=== PATIENT | male | born 1990 | race Caucasian/White ===

== ENCOUNTER 2016-08-17 21:10 | Emergency (ER) | payer MEDICAID ==
[2016-08-17 21:20] VITALS: TEMP 97.5
--- NOTE | 2016-08-17 21:23 | CPEKG ---
Heart Rate: 108 RR Interval: 556 P-R Interval: 136 QRSD Interval: 84 QT Interval: 360 QTC Interval: 483 P [place]: 69 QRS [place]: 96 T Wave [place]: 34 EKG Severity - ABNORMAL ECG - EKG Impression: SINUS TACHYCARDIA EKG Impression: PROBABLE LEFT ATRIAL ABNORMALITY EKG Impression: BORDERLINE RIGHT AXIS DEVIATION EKG Impression: BORDERLINE PROLONGED QT INTERVAL Electronically Signed By: Mckinley Busby 17-Aug-2016 22:47:58
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
--- NOTE | 2016-08-17 21:49 | DX ---
PA and Lateral Chest Clinical Indications: Left-sided chest pain, dyspnea. Findings: Compare 2014 and 2010. [place]ry overlies the left hemithorax. Mild thoracic vertebral compr ession deformities are unchanged from July 10, 2015. The lungs are clear, and no masses are found. The heart and pulmonary vessels are normal. There are no pleural effusions and no pneumothorax. Impression: No acute cardiopulmonary abnormality.
[2016-08-17 21:59] VITALS: BP 108/67; PULSE 110; RESP 14; O2SAT 94
--- NOTE | 2016-08-18 10:03 | CPEKG ---
Heart Rate: 102 RR Interval: 588 P-R Interval: 136 QRSD Interval: 88 QT Interval: 360 QTC Interval: 469 P [place]: 77 QRS [place]: 102 T Wave [place]: 36 EKG Severity - ABNORMAL ECG - EKG Impression: SINUS TACHYCARDIA EKG Impression: LEFT ATRIAL ABNORMALITY EKG Impression: BORDERLINE RIGHT AXIS DEVIATION Electronically Signed By: Son Olson 19-Aug-2016 16:46:24
== END 2016-08-17 21:57 | disposition home or self-care (01) ==
LOC: EDUNIT# → EDBD
DX: R07.89 Other chest pain (principal); F17.200 Nicotine dependence, unspecified, uncomplicated

== ENCOUNTER 2017-03-05 23:32 | Emergency (ER) | payer MEDICAID, OTHER ==
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
[2017-03-06 00:13] VITALS: RESP 16; TEMP 97.9; O2SAT 96
[2017-03-06] MEDS ORDERED: HYDROCODONE/APAP 5/325 TAB PO ONE (00:23)
[2017-03-06] MEDS ORDERED: ACETAMINOPHEN 325 MG TAB PO ONE (00:32)
[2017-03-06 00:36] VITALS: BP 125/80; PULSE 78
== END 2017-03-06 00:35 | disposition home or self-care (01) ==
DX: S02.2XXA Fracture of nasal bones, initial encounter for closed fracture (principal); F17.200 Nicotine dependence, unspecified, uncomplicated; Y04.0XXA Assault by unarmed brawl or fight, initial encounter; Y92.149 Unspecified place in prison as the place of occurrence of the external cause

== ENCOUNTER 2017-07-17 02:10 | Emergency (ER) | payer MEDICAID ==
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
[2017-07-17] MEDS ORDERED: DEXAMETHASONE 10 MG/ML VIAL IVP ONE (02:20)
[2017-07-17] MEDS ORDERED: ONDANSETRON 4 MG/2 ML VIAL IVP ONE (02:20)
[2017-07-17] MEDS ORDERED: HYDROmorphONE/DILAUDID 1 MG/ML INJ IVP ONE (02:20)
[2017-07-17] MEDS ORDERED: KETOROLAC 30 MG/1 ML SDV IVP ONE (02:20)
[2017-07-17] MEDS ORDERED: NS 1,000 ML IV ONE (02:20)
[2017-07-17 03:27] LABS: % IMMATURE GRANULYOCYTES 0.5 % (0.0-1.1); ADD DIFF? NO; ADD MORPH? NO; ADD SCAN? NO; ATYPICAL LYMPHOCYTE FLAG 0 (0-99); FRAGMENT RBC FLAG 0 (0-99); HEMATOCRIT 43.6 % (40.0-51.0); HEMOGLOBIN 15.9 g/dL (13.7-17.5); LEFT SHIFT FLG 0 (0-99); LIPEMIA HEMOLYSIS FLAG 90 (0-99); MEAN CELL HEMOGLOBIN 32.1 pg (27.9-34.1); MEAN CELL HEMOGLOBIN CONCENTR. 36.5 g/dL (32.4-36.7); MEAN CELL VOLUME 87.9 fL (81.5-99.8); MEAN PLATELET VOLUME 9.2 fL (8.7-11.7); PLATELET CLUMPS FLAG 0 (0-99); PLATELET COUNT 304 10^3/uL (150-400); RED BLOOD CELL COUNT 4.96 10^6/uL (4.40-6.38)
[2017-07-17 03:34] LABS: ANION GAP 14 mEq/L (8-16); CALCIUM 9.9 mg/dL (8.5-10.4); CARBON DIOXIDE 26 mEq/l (22-31); CHLORIDE 104 mEq/L (97-110); CREATININE 0.8 mg/dL (0.7-1.3); GLOMERULAR FILTRATION RATE > 60; GLUCOSE 103 mg/dL (70-100); POTASSIUM 3.8 mEq/L (3.5-5.2); SODIUM 144 mEq/L (134-144)
[2017-07-17 05:09] LABS: COLOR YELLOW; LEUKOCYTE ESTERASE,URINE NEGATIVE (NEGATIVE); NITRITE,URINE NEGATIVE (NEGATIVE)
[2017-07-17 05:34] VITALS: BP 114/75; PULSE 90; RESP 18; TEMP 98.1; O2SAT 95
== END 2017-07-17 05:34 | disposition home or self-care (01) ==
LOC: EDUNIT#
DX: R51 Headache (principal); F17.200 Nicotine dependence, unspecified, uncomplicated; E86.9 Volume depletion, unspecified
CPT/HCPCS: 80305; 96374; J1100; J1200; J1885; J2405

== ENCOUNTER 2018-09-15 06:26 | Emergency (ER) | payer MEDICAID ==
--- NOTE | 2018-09-15 06:35 | EDPHY ---
H & P Time Seen by Provider: 09/15/18 06:31 HPI/ROS: Chief Complaint: Back pain status post fall HPI: 27-year-old male had a mechanical fall on a wet floor in the grocery store this morning. Patient states that he slipped on some water on the floor and his legs went out from under him, falling flat on his back. Complaining of some pain in his right lower back, right wrist and ball size is neck. He did not have a loss of consciousness. He was up and ambulating after the fall. No numbness or weakness. No chest pain or shortness of breath. Does admit to smoking marijuana this morning. ROS: 10 systems were reviewed and were negative except those elements noted in the HPI. PMH: Denies Social History: No smoking, no alcohol, occasional marijuana Family History: non-contributory Physical Exam: Gen: Awake, Alert, Airway Intact HEENT: Head: Atraumatic Eyes: PERRLA, EOMI Nose: No epistaxis Mouth: Normal dentition, Airway patent Face: No deformity Neck: non-tender, no stepoff, Full ROM without pain Chest: non-tender, lungs CTA Heart: normal heart tones Abd: soft, non-tender, atraumatic Pelvis: non-tender, stable to AP and Lateral compression Back: atraumatic, no midline tenderness, mild right paraspinal tenderness in the lower thoracic upper lumbar paraspinal muscles. Ext: atramatic, full ROM Skin: no rash Neuro: CN II-XII intact, Strength 5/5 in all extremities, sensation intact in all extremities - Personal History Tetanus Vaccine Date: 01/20/13 - Medical/Surgical History Hx Asthma: No Hx Chronic Respiratory Disease: No Hx Diabetes: No Hx Cardiac Disease: No Hx Renal Disease: No Hx Cirrhosis: No Hx Alcoholism: Yes Hx HIV/AIDS: No Hx Splenectomy or Spleen Trauma: No Other PMH: anxiety/depression - Social History Smoking Status: Current every day smoker Allergies/Adverse Reactions: acetaminophen [From Tylenol] Allergy (Verified 06/30/18 21:13) Home Medications: Medication Instructions Recorded Prozac 10 MG (RX) 10/19/13 [place] Carbonate 06/30/18 Seroquel 06/30/18 diphenhydrAMINE [Benadryl 50 MG 50 mg PO Q8 PRN #10 cap 06/30/18 (*)] Medical Decision Making ED Course/Re-evaluation: 27-year-old male complaining of neck back and wrist pain after fall. He has no reproducible tenderness of his cervical spine or his wrist. There is no central midline back tenderness. He has some mild tenderness in his right paraspinal region. He is completely neurologically intact. He is ambulating without difficulty. Will give him some ibuprofen discharge. There are no indications for x-rays at this time. Departure - Departure Disposition: Home, Routine, Self-Care Clinical Impression: Back contusion Condition: Good Instructions: Contusion in Adults (ED) Additional Instructions: Take ibuprofen, 600 mg every 8 hr. You may alternate with acetaminophen, 1000 mg every 8 hr. Apply ice for 15 min of every hour while awake. Follow up with primary care physician in 3-4 days for re-evaluation. Return to the emergency department for increasing pain, numbness, weakness, fevers, difficulty urinating, or any other concerns. Referrals: [facility],. [Clinic] - As per Instructions
[2018-09-15] MEDS ORDERED: IBUPROFEN 600 MG TAB PO ONE (06:37)
[2018-09-15 06:41] VITALS: BP 132/94
== END 2018-09-15 07:15 | disposition home or self-care (01) ==
LOC: EDUNIT#
DX: M54.9 Dorsalgia, unspecified (principal); W01.198A Fall on same level from slipping, tripping and stumbling with subsequent striking against other object, initial encounter; Y92.512 Supermarket, store or market as the place of occurrence of the external cause